=== PATIENT | female | born 1975 | race American Indian/Alaskan Native ===

== ENCOUNTER 2019-03-14 19:11 | Emergency (ER) | payer MEDICAID, OTHER ==
[2019-03-14 19:39] VITALS: BP 152/93
[2019-03-14] MEDS ORDERED: predniSONE 20 MG Tab PO ONE (19:57)
[2019-03-14] MEDS ORDERED: Albuterol 0.083% 2.5 MG/3 ML Neb Soln NEB ONE (19:57)
--- NOTE | 2019-03-14 20:22 | CRLCR ---
Indication: Continued pain after tripping 2 weeks ago. Technique: Three views of the right 3rd toe were obtained. Comparison: None Findings: A vertical fractures identified through the proximal phalanx of the right 3rd toe. This extends to the level of the PIP. No other fractures are identified. Impression: Fracture of the proximal phalanx of the right 3rd toe Dictated by Cande Platt MD @ Mar 14 2019 8:19PM Signed by Dr. Cande Platt @ Mar 14 2019 8:20PM
--- NOTE | 2019-03-14 20:22 | CRLCR ---
Indication: Cough with wheezing. Technique: PA and lateral views the chest were obtained. Comparison: None Findings: The heart is normal in size. The lungs are clear. No infiltrate, pleural effusion, or pneumothorax is identified. Impression: No acute cardiopulmonary process. Dictated by Cande Platt MD @ Mar 14 2019 8:20PM Signed by Dr. Cande Platt @ Mar 14 2019 8:21PM
--- NOTE | 2019-03-14 20:43 | EDM.PDOC ---
ED HPI GENERAL MEDICAL PROBLEM - General Chief Complaint: Respiratory Problem Stated Complaint: BROKEN TOE & COUGH Time Seen by Provider: 03/14/19 19:50 Source of Information: Reports: Patient History Limitations: Reports: No Limitations - History of Present Illness INITIAL COMMENTS - FREE TEXT/NARRATIVE: 44-year-old female presents to ER with toe injury and productive cough with wheezing. Patient has a history of asthma with symptoms despite using her albuterol inhaler which is likely old or empty not noting an improvement of her symptoms. Patient is on daily inhaled steroids. Patient continues to smoke. Patient had chills and sweats earlier in the week but has improved. Patient has a headache secondary cough. She injured her right third digit approximately 6 days ago when she was getting up out of bed. She stubbed the toe and has had continued pain despite taking Tylenol 650 mg and Ibuprofen 1/2 of 800mg tablets. Medications have not been controlling her pain adequately. She has been on unable to sleep at night secondary to the pain. She asks repeatedly for something stronger for the pain multiple times during visit. - Related Data Allergies Allergy/AdvReac Type Severity Reaction Status Date / Time aspirin Allergy Abdominal Verified 03/14/19 19:40 Pain ketorolac tromethamine Allergy Hives Verified 03/14/19 19:40 [From Toradol] propoxyphene napsylate Allergy Hives Verified 03/14/19 19:40 [From Darvocet-N] tramadol Allergy Hives Verified 03/14/19 19:40 Home Meds: Home Meds Albuterol Sulfate 0.63 mg IH Q4H PRN 05/06/15 [History] Cholecalciferol (Vitamin D3) [Vitamin D] 1,000 unit PO DAILY 05/06/15 [History] Acetaminophen [Tylenol Extra Strength] 1,500 mg PO QID PRN 08/18/15 [History] Ibuprofen [Wal-Profen] 800 mg PO TID PRN 08/18/15 [History] Acetaminophen/HYDROcodone [[place] 325-5 MG] 1 - 2 tab PO Q6H PRN 2 Days #10 tab 03/14/19 [Rx] Albuterol [Proventil HFA] 200 puff INH Q4H 5 Days #1 inhaler 03/14/19 [Rx] Azithromycin [Zithromax] 250 mg PO DAILY 5 Days #6 tab 03/14/19 [Rx] Diclofenac Sodium [Voltaren] 03/14/19 [History] Montelukast [Singulair] 03/14/19 [History] Rosuvastatin [Crestor] 03/14/19 [History] metFORMIN [Glucophage] 03/14/19 [History] predniSONE [Prednisone] 20 mg PO BID 5 Days #10 tablet 03/14/19 [Rx] Past Medical History Endocrine/Metabolic History: Reports: Diabetes, Type II - Past Surgical History Cardiovascular Surgical History: Reports: Vascular Surgery GI Surgical History: Reports: Appendectomy Female Surgical History: Reports: Section Other Musculoskeletal Surgeries/Procedures:: Carpal tunnel x2 Social & Family History - Tobacco Use Smoking Status *Q: Current Every Day Smoker Years of Tobacco use: 20 Packs/Tins Daily: 0.5 ED ROS GENERAL - Review of Systems Review Of Systems: ROS reveals no pertinent complaints other than HPI. ED EXAM, GENERAL - Physical Exam Exam: See Below Exam Limited By: No Limitations General Appearance: Alert, WD/WN Eye Exam: Bilateral Eye: EOMI, PERRL Ears: Normal External Exam, Hearing Grossly Normal Nose: Normal Inspection, Normal Mucosa, No Blood Throat/Mouth: Normal Inspection, Normal Lips, Normal Teeth, Normal Gums, Normal Oropharynx, Normal Voice, No Airway Compromise Head: Normocephalic Neck: Normal Inspection, Supple, Full Range of Motion Respiratory/Chest: No Respiratory Distress, Wheezing, Splinting. No: Normal Breath Sounds Cardiovascular: Normal Peripheral Pulses, Regular Rate, Rhythm, No Edema Extremities: Normal Inspection (Right foot third toe swelling noted. Pain to palpation. ), Normal Range of Motion, Non-Tender, Normal Capillary Refill, No Pedal Edema Neurological: Alert, Oriented, CN II-XII Intact, Normal Cognition, Normal Gait Psychiatric: Normal Affect, Normal Mood, Other (makes multiple trips to ER kitchen during visit. ) ED RESPIRATORY PROCEDURES - Additional/Other Procedure(s) Other (Free Text) Procedure(s): Ty tape third digit due to pain, swelling and fracture to second or fourth digit. Course - Vital Signs Last Recorded V/S: Last Vital Signs Temp 98.6 C H 03/14/19 19:38 Pulse 98 03/14/19 19:38 Resp 15 03/14/19 19:38 BP 152/93 H 03/14/19 19:38 Pulse Ox 98 06/15/19 19:38 - Orders/Labs/Meds Orders: Active Orders 24 hr Category Date Time Status RT Aerosol Therapy [RC] ASDIRECTED Care 03/14/19 19:57 Active Splinting [RC] ASDIRECTED Care 03/14/19 20:00 Active Meds: Medications Discontinued Medications Generic Name Dose Route Start Last Admin Trade Name Freq PRN Reason Stop Dose Admin Albuterol 2.5 mg 03/14/19 19:57 03/14/19 20:15 Proventil Neb Soln NEB 03/14/19 19:58 2.5 mg ONETIME ONE Administration Prednisone 60 mg 03/14/19 19:57 03/14/19 20:15 Prednisone PO 03/14/19 19:58 60 mg ONETIME ONE Administration - Radiology Interpretation Free Text/Narrative:: CXR PA/LAT: No acute cardiopulmonary findings noted. Right Third Toe XR: Soft Tissue swelling and Fracture of the right third proximal phalanx. Radiology report reviewed during ER visit and reviewed with patient before discharge. Departure - Departure Time of Disposition: 20:30 Disposition: Home, Self-Care 01 Condition: Good Clinical Impression: COPD (chronic obstructive pulmonary disease) with acute bronchitis, Wheezing on expiration, Toe fracture, right - Discharge Information Prescriptions: Acetaminophen/HYDROcodone [[place] 325-5 MG] 1 - 2 tab PO Q6H PRN 2 Days #10 tab PRN Reason: Pain (Severe 7-10) Albuterol [Proventil HFA] 200 puff INH Q4H 5 Days #1 inhaler Azithromycin [Zithromax] 250 mg PO DAILY 5 Days #6 tab predniSONE [Prednisone] 20 mg PO BID 5 Days #10 tablet Instructions: Chronic Obstructive Pulmonary Disease Exacerbation, [id number] , Toe Fracture, [id number], Bronchospasm, Adult, [id number] Referrals: PCP,None [Primary Care Provider] - 3 Days (Call PCP recheck in 3-5 days if not improving sooner if symptoms worsen or concerns. ) Forms: ED Department Discharge Additional Instructions: 1. Albuterol MDI with spacer every 4 hours whie awake x 5 days then as needed. INSTYMED 2. Prednisone 20mg BID or 40mf daily x 5 days. INSTYMED 3. If you Smoke STOP. 4. Continued Inhaled steroid as directed. 5. Azithromycin as directed x 6 days. INSTYMED 6. Mecca 1-2 tab every 6 hours for 24 hrs for moderate to severe pain. INSTYMED 7. Follow discharge instructions given. - My Orders Last 24 Hours: My Active Orders 03/14/19 19:57 RT Aerosol Therapy [RC] ASDIRECTED 03/14/19 20:00 Splinting [RC] ASDIRECTED - Assessment/Plan Last 24 Hours: My Active Orders 03/14/19 19:57 RT Aerosol Therapy [RC] ASDIRECTED 03/14/19 20:00 Splinting [RC] ASDIRECTED
== END 2019-03-14 21:25 | disposition home or self-care (01) ==
LOC: JP.ED 19:11
DX: S92.511A Displaced fracture of proximal phalanx of right lesser toe(s), initial encounter for closed fracture (principal); J44.0 Chronic obstructive pulmonary disease with (acute) lower respiratory infection; J20.9 Acute bronchitis, unspecified; E11.9 Type 2 diabetes mellitus without complications; F17.210 Nicotine dependence, cigarettes, uncomplicated; Z88.8 Allergy status to other drugs, medicaments and biological substances; Z79.84 Long term (current) use of oral hypoglycemic drugs; Z88.5 Allergy status to narcotic agent; Z79.899 Other long term (current) drug therapy
CPT/HCPCS: 71046; 73660; 94640; 99283; A9270

== ENCOUNTER 2019-03-15 16:25 | Emergency (ER) | payer MEDICAID ==
[2019-03-15] MEDS ORDERED: Albuterol/Ipratropium 3.0-0.5 MG/3 ML Neb Soln NEB ONE (16:47)
[2019-03-15] MEDS ORDERED: Albuterol 0.083% 2.5 MG/3 ML Neb Soln NEB ONE (16:47)
[2019-03-15] MEDS ORDERED: Dexamethasone 4 MG/ML SDV IM ONE (16:56)
--- NOTE | 2019-03-15 16:57 | EDM.PDOC ---
ED HPI GENERAL MEDICAL PROBLEM - General Chief Complaint: Respiratory Problem Stated Complaint: SOB, WHEEZY, BROKEN TOE Time Seen by Provider: 03/15/19 16:40 Source of Information: Reports: Patient History Limitations: Reports: No Limitations - History of Present Illness INITIAL COMMENTS - FREE TEXT/NARRATIVE: Alert 50-year-old female presents with worsening shortness of breath. Patient has asthma and was seen yesterday for asthma exacerbation, possible viral illness or typical pneumonia. Patient was given prednisone orally, started azithromycin, albuterol neb treatment improved her symptoms yesterday but reoccurrence today. Patient states she continues her Singulair. She is on her inhaled steroids. She is using her albuterol I don't think she is using as often as previously instructed. Patient states her cough is keeping her up at night she's had difficulty breathing. Patient denies any history of hospitalizations or intubation secondary to asthma. Chest Pain Score (Numeric/FACES): 10 - Related Data Allergies Allergy/AdvReac Type Severity Reaction Status Date / Time aspirin Allergy Abdominal Verified 03/15/19 16:47 Pain ketorolac tromethamine Allergy Hives Verified 03/15/19 16:47 [From Toradol] propoxyphene napsylate Allergy Hives Verified 03/15/19 16:47 [From Darvocet-N] tramadol Allergy Hives Verified 03/15/19 16:47 Home Meds: Home Meds Albuterol Sulfate 0.63 mg IH Q4H PRN 05/06/15 [History] Cholecalciferol (Vitamin D3) [Vitamin D] 1,000 unit PO DAILY 05/06/15 [History] Acetaminophen [Tylenol Extra Strength] 1,500 mg PO QID PRN 08/18/15 [History] Ibuprofen [Wal-Profen] 800 mg PO TID PRN 08/18/15 [History] Acetaminophen/HYDROcodone [[place] 325-5 MG] 1 - 2 tab PO Q6H PRN 2 Days #10 tab 03/14/19 [Rx] Albuterol [Proventil HFA] 200 puff INH Q4H 5 Days #1 inhaler 03/14/19 [Rx] Azithromycin [Zithromax] 250 mg PO DAILY 5 Days #6 tab 03/14/19 [Rx] Diclofenac Sodium [Voltaren] 03/14/19 [History] Montelukast [Singulair] 03/14/19 [History] Rosuvastatin [Crestor] 03/14/19 [History] metFORMIN [Glucophage] 03/14/19 [History] predniSONE [Prednisone] 20 mg PO BID 5 Days #10 tablet 03/14/19 [Rx] Past Medical History Respiratory History: Reports: Asthma Endocrine/Metabolic History: Reports: Diabetes, Type II - Past Surgical History Cardiovascular Surgical History: Reports: Vascular Surgery GI Surgical History: Reports: Appendectomy Female Surgical History: Reports: Section Other Musculoskeletal Surgeries/Procedures:: Carpal tunnel x2 Social & Family History - Tobacco Use Smoking Status *Q: Heavy Tobacco Smoker Years of Tobacco use: 30 Packs/Tins Daily: 1 - Recreational Drug Use Recreational Drug Use: No ED ROS GENERAL - Review of Systems Review Of Systems: ROS reveals no pertinent complaints other than HPI. ED EXAM, GENERAL - Physical Exam Exam: See Below Exam Limited By: No Limitations General Appearance: Alert, WD/WN, Moderate Distress (cough forceful with wheezing ) Eye Exam: Bilateral Eye: EOMI, PERRL Ears: Normal External Exam, Hearing Grossly Normal Nose: Normal Inspection, Normal Mucosa Throat/Mouth: Normal Inspection, Normal Oropharynx, Normal Voice, No Airway Compromise Head: Normocephalic Neck: Normal Inspection, Full Range of Motion Respiratory/Chest: Wheezing, Accessory Muscle Use, Retractions, Prolonged Expiration Cardiovascular: Normal Peripheral Pulses, Regular Rate, Rhythm GI/Abdominal: Normal Bowel Sounds (limited due to body habitus) Extremities: Normal Inspection, Normal Range of Motion, Non-Tender, No Pedal Edema, Normal Capillary Refill, Other (swelling and pain to palpation right long toe) Neurological: Alert Psychiatric: Normal Affect, Normal Mood Skin Exam: Warm, Dry, Intact, Normal Color, No Rash Course - Vital Signs Last Recorded V/S: Last Vital Signs Temp 37.2 C 03/15/19 16:45 Pulse 108 H 03/15/19 16:45 Resp 16 03/15/19 16:45 BP 155/102 H 03/15/19 16:45 Pulse Ox 96 03/15/19 16:45 - Orders/Labs/Meds Orders: Active Orders 24 hr Category Date Time Status RT Aerosol Therapy [RC] ASDIRECTED Care 03/15/19 16:47 Active RT Peak Flow Measurement [RC] ASDIRECTED Care 03/15/19 16:47 Active Meds: Medications Discontinued Medications Generic Name Dose Route Start Last Admin Trade Name [place] PRN Reason Stop Dose Admin Albuterol 2.5 mg 03/15/19 16:47 03/15/19 16:56 Proventil Neb Soln NEB 03/15/19 16:48 2.5 mg ONETIME ONE Administration Albuterol/Ipratropium 3 ml 03/15/19 16:47 03/15/19 16:56 Duoneb 3.0-0.5 Mg/3 Ml NEB 03/15/19 16:48 3 ml ONETIME ONE Administration Dexamethasone 10 mg 03/15/19 16:56 03/15/19 17:03 Dexamethasone IM 03/15/19 16:57 10 mg ONETIME ONE Administration - Re-Assessments/Exams Free Text/Narrative Re-Assessment/Exam: Albuterol neb and DuoNeb were given. Patient's pre-treatment peak flow was 260. Post peak flow 360. Patient wheezing and chest congestion is completely resolved. I reeducated patient regarding albuterol 2 puffs every 4hrx x 5 days then as directed. Continue the prednisone as directed, azithromycin and Singulair. Patient should continue her inhaled steroid. I encouraged patient to call to [facility] tomorrow morning for an appointment to recheck in 2- 3 days and establish care with an area. 03/15/19 17:32 Departure - Departure Time of Disposition: 17:34 Disposition: Home, Self-Care 01 Clinical Impression: Exacerbation of asthma, Wheezing on expiration, Toe fracture, right - Discharge Information Instructions: Steps to Quit Smoking, [id number], Asthma, Adult, Bronchospasm , Adult, Peak Flow Meter, Allergies, Adult Referrals: PCP,None [Primary Care Provider] - (Call PCP in am for recheck in 2-3 days to ensure improving. ) Forms: ED Department Discharge Additional Instructions: 1. Continue Prednisone, Azithromycin, Albuterol and inhaler steroids at home. 2. Albuterol 2 puffs every 4 hours x 5 days (use if your breathing wakes you up at night) 3. Continue Singular 10mg daily (at bedtime) for possible allergy component to symptoms. 4. Call [facility] Saturday for recheck in 2-3 days and establish primary care provider. 5. Return to ER if increased difficulty breathing or additional asthma concerns. - My Orders Last 24 Hours: My Active Orders 03/15/19 16:47 RT Aerosol Therapy [RC] ASDIRECTED RT Peak Flow Measurement [RC] ASDIRECTED - Assessment/Plan Last 24 Hours: My Active Orders 03/15/19 16:47 RT Aerosol Therapy [RC] ASDIRECTED RT Peak Flow Measurement [RC] ASDIRECTED
[2019-03-15 17:37] VITALS: BP 162/97
== END 2019-03-15 17:38 | disposition home or self-care (01) ==
LOC: JP.ED 16:25
DX: J45.901 Unspecified asthma with (acute) exacerbation (principal); S92.511A Displaced fracture of proximal phalanx of right lesser toe(s), initial encounter for closed fracture; E11.9 Type 2 diabetes mellitus without complications; F17.210 Nicotine dependence, cigarettes, uncomplicated; Z88.5 Allergy status to narcotic agent; Z88.6 Allergy status to analgesic agent; Z79.899 Other long term (current) drug therapy; Z90.49 Acquired absence of other specified parts of digestive tract; W22.8XXA Striking against or struck by other objects, initial encounter
CPT/HCPCS: 94640; 96372; 99284; J1100; J7620-GY

== ENCOUNTER 2019-03-31 23:57 | Emergency (ER) | payer MEDICAID ==
[2019-04-01 00:33] VITALS: BP 148/80; PULSE 110
--- NOTE | 2019-04-01 01:01 | EDM.PDOC ---
ED HPI GENERAL MEDICAL PROBLEM - General Chief Complaint: Respiratory Problem Stated Complaint: COUGH Time Seen by Provider: 04/01/19 00:40 Source of Information: Reports: Patient History Limitations: Reports: No Limitations - History of Present Illness INITIAL COMMENTS - FREE TEXT/NARRATIVE: 44-year-old female with a persistent cough for the past couple of weeks, much worse the last 2 days. Starting to develop some sputum production. She is continuing her asthma medications. She is also smoking fairly heavily. No fevers or chills. Onset: Gradual Duration: Week(s): (several weeks) Associated Symptoms: Reports: Cough, Headaches, Shortness of Breath. 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 (see below) Other Treatments AUTOMATION CONTROLS EXPERT: unkown - Related Data Allergies Allergy/AdvReac Type Severity Reaction Status Date / Time aspirin Allergy Abdominal Verified 03/15/19 16:47 Pain ketorolac tromethamine Allergy Hives Verified 03/15/19 16:47 [From Toradol] lactose Allergy Diarrhea Verified 04/01/19 00:20 Latex, Natural Rubber Allergy Hives Verified 04/01/19 00:20 morphine Allergy Rash Verified 04/01/19 00:20 propoxyphene napsylate Allergy Hives Verified 03/15/19 16:47 [From Darvocet-N] tramadol Allergy Hives Verified 03/15/19 16:47 Home Meds: Home Meds Albuterol Sulfate 0.63 mg IH Q4H PRN 05/06/15 [History] Cholecalciferol (Vitamin D3) [Vitamin D] 1,000 unit PO DAILY 05/06/15 [History] Acetaminophen [Tylenol Extra Strength] 1,500 mg PO QID PRN 08/18/15 [History] Ibuprofen [Wal-Profen] 800 mg PO TID PRN 08/18/15 [History] Albuterol [Proventil HFA] 200 puff INH Q4H 5 Days #1 inhaler 03/14/19 [Rx] Diclofenac Sodium [Voltaren] 50 mg PO BID 03/14/19 [History] Montelukast [Singulair] 10 mg PO DAILY 03/14/19 [History] Rosuvastatin [Crestor] 20 mg PO BEDTIME 03/14/19 [History] metFORMIN [Glucophage] 1,000 mg PO BID 03/14/19 [History] Past Medical History Cardiovascular History: Reports: None Respiratory History: Reports: Asthma Gastrointestinal History: Reports: None Genitourinary History: Reports: None Musculoskeletal History: Reports: None Endocrine/Metabolic History: Reports: Diabetes, Type II - Past Surgical History Cardiovascular Surgical History: Reports: Vascular Surgery GI Surgical History: Reports: Appendectomy Female Surgical History: Reports: Section Musculoskeletal Surgical History: Reports: Other (See Below) Other Musculoskeletal Surgeries/Procedures:: Carpal tunnel x2 Social & Family History - Tobacco Use Smoking Status *Q: Never Smoker Second Hand Smoke Exposure: No - Caffeine Use Caffeine Use: Reports: Energy Drinks, Soda - Recreational Drug Use Recreational Drug Use: No ED ROS GENERAL - Review of Systems Review Of Systems: See Below Constitutional: Denies: Fever, Chills HEENT: Denies: Throat Pain Respiratory: Reports: Shortness of Breath, Wheezing, Cough Cardiovascular: Denies: Chest Pain GI/Abdominal: Denies: Abdominal Pain, Nausea, Vomiting : Reports: Incontinence (Becomes incontinent from coughing) Skin: Reports: No Symptoms Neurological: Reports: Headache ED EXAM, GENERAL - Physical Exam Exam: See Below Exam Limited By: No Limitations General Appearance: Alert, No Apparent Distress Throat/Mouth: Normal Inspection Head: Atraumatic Respiratory/Chest: No Respiratory Distress, Wheezing (A few expiratory wheezes are heard while coughing, otherwise clear to the bases with normal respirations) Neurological: Alert, Oriented Psychiatric: Normal Affect, Normal Mood Skin Exam: Warm, Dry Course - Vital Signs Last Recorded V/S: Last Vital Signs Temp 98.1 F 04/01/19 00:32 Pulse 110 H 04/01/19 00:32 Resp 16 04/01/19 00:32 BP 148/80 H 04/01/19 00:32 Pulse Ox 96 04/01/19 00:32 - Re-Assessments/Exams Free Text/Narrative Re-Assessment/Exam: 04/01/19 01:00 Patient will be placed on 60 mg of prednisone daily for 5 consecutive days, and also given a five-day course of Zithromax. Strongly encouraged to decrease smoking. Recheck in 3-4 days if not improving satisfactorily. Departure - Departure Time of Disposition: 01:23 Disposition: Home, Self-Care 01 Condition: Good Clinical Impression: Bronchitis - Discharge Information Instructions: Acute Bronchitis, Adult, [id number] Referrals: PCP,None [Primary Care Provider] - Forms: ED Department Discharge Care Plan Goals: Continue with inhalers as directed, take 6 pills of prednisone in the morning for 5 consecutive days. Also take antibiotic as directed. Try to reduce smoking if possible. Recheck in 3-4 days if not improving satisfactorily.
== END 2019-04-01 01:28 | disposition home or self-care (01) ==
LOC: JP.ED 23:57
DX: J40 Bronchitis, not specified as acute or chronic (principal); E11.9 Type 2 diabetes mellitus without complications; Z79.84 Long term (current) use of oral hypoglycemic drugs; Z88.8 Allergy status to other drugs, medicaments and biological substances; Z88.6 Allergy status to analgesic agent; Z91.040 Latex allergy status; Z79.899 Other long term (current) drug therapy; Z88.5 Allergy status to narcotic agent
CPT/HCPCS: 99282

== ENCOUNTER 2019-05-03 16:37 | Emergency (ER) | payer MEDICAID ==
[2019-05-03 17:17] VITALS: BP 129/70; PULSE 104
--- NOTE | 2019-05-03 17:42 | EDM.PDOC ---
ED HPI GENERAL MEDICAL PROBLEM - General Chief Complaint: Lower Extremity Injury/Pain Stated Complaint: FELL HURT FOOT Time Seen by Provider: 05/03/19 17:34 Source of Information: Reports: Patient History Limitations: Reports: No Limitations - History of Present Illness INITIAL COMMENTS - FREE TEXT/NARRATIVE: fell today, causing pain to her left lateral foot; hurts to bear weight has abrasion to her right knee Right great toe hurts as well but she declines xray She took tylenol before arrival Denies injuring this foot in the past. Onset: Today Duration: Hour(s): (3) Location: Reports: Lower Extremity, Left Quality: Reports: Ache Severity: Moderate Improves with: Reports: None Worsens with: Reports: None Treatments RECRUITING ASSISTANT: Reports: Acetaminophen Left Feet Pain Score (Numeric/FACES): 9 - Related Data Allergies Allergy/AdvReac Type Severity Reaction Status Date / Time aspirin Allergy Abdominal Verified 05/03/19 17:17 Pain ketorolac tromethamine Allergy Hives Verified 05/03/19 17:17 [From Toradol] lactose Allergy Diarrhea Verified 05/03/19 17:17 Latex, Natural Rubber Allergy Hives Verified 05/03/19 17:17 morphine Allergy Rash Verified 05/03/19 17:17 propoxyphene napsylate Allergy Hives Verified 05/03/19 17:17 [From Darvocet-N] tramadol Allergy Hives Verified 05/03/19 17:17 Home Meds: Home Meds Albuterol Sulfate 0.63 mg IH Q4H PRN 05/06/15 [History] Cholecalciferol (Vitamin D3) [Vitamin D] 1,000 unit PO DAILY 05/06/15 [History] Acetaminophen [Tylenol Extra Strength] 1,500 mg PO QID PRN 08/18/15 [History] Ibuprofen [Wal-Profen] 800 mg PO TID PRN 08/18/15 [History] Albuterol [Proventil HFA] 200 puff INH Q4H 5 Days #1 inhaler 03/14/19 [Rx] Diclofenac Sodium [Voltaren] 50 mg PO BID 03/14/19 [History] Montelukast [Singulair] 10 mg PO DAILY 03/14/19 [History] Rosuvastatin [Crestor] 20 mg PO BEDTIME 03/14/19 [History] metFORMIN [Glucophage] 1,000 mg PO BID 03/14/19 [History] Gabapentin [Neurontin] 300 mg PO TID 05/03/19 [History] traZODone 200 mg PO BEDTIME 05/03/19 [History] Past Medical History HEENT History: Reports: Glaucoma, Impaired Vision Cardiovascular History: Reports: None Respiratory History: Reports: Asthma, COPD Gastrointestinal History: Reports: None Genitourinary History: Reports: None 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: Musculoskeletal History: Reports: Back Pain, Chronic Psychiatric History: Reports: ADHD, Anxiety, PTSD Endocrine/Metabolic History: Reports: Diabetes, Type II - Past Surgical History Cardiovascular Surgical History: Reports: Vascular Surgery GI Surgical History: Reports: Appendectomy Female Surgical History: Reports: Section Musculoskeletal Surgical History: Reports: Other (See Below) Other Musculoskeletal Surgeries/Procedures:: Carpal tunnel x2 Social & Family History - Tobacco Use Smoking Status *Q: Current Every Day Smoker Years of Tobacco use: 25 Packs/Tins Daily: 1.5 Used Tobacco, but Quit: No - Caffeine Use Caffeine Use: Reports: Coffee, Energy Drinks, Soda - Recreational Drug Use Recreational Drug Use: Yes Recreational Drug Type: Reports: Marijuana/Hashish Recreational Drug Use Frequency: Rarely Review of Systems - Review of Systems Review Of Systems: ROS reveals no pertinent complaints other than HPI. ED EXAM, GENERAL - Physical Exam Exam: See Below Exam Limited By: No Limitations General Appearance: Alert, WD/WN, No Apparent Distress Head: Atraumatic, Normocephalic Neck: Normal Inspection, Full Range of Motion Respiratory/Chest: Lungs Clear, Normal Breath Sounds Cardiovascular: Regular Rate, Rhythm Peripheral Pulses: 4+: Posterior Tibial (L), Posterior Tibial (R), Dorsalis Pedis (L), Dorsalis Pedis (R) Extremities: Redness (right knee; pain to the left lateral foot, hurts to move. +cms) Neurological: Alert, Oriented, CN II-XII Intact, Normal Cognition Psychiatric: Normal Affect, Normal Mood Skin Exam: Warm, Dry, Intact Course - Vital Signs Last Recorded V/S: Last Vital Signs Temp 95.3 F L 05/03/19 17:14 Pulse 104 H 05/03/19 17:14 Resp 14 05/03/19 17:14 BP 129/70 05/03/19 17:14 Pulse Ox 98 05/03/19 17:14 - Orders/Labs/Meds Orders: Active Orders 24 hr Category Date Time Status Foot 2V Lt [CR] Stat Exams 05/03/19 17:39 Taken Bacitracin [Bacitracin Oint] Med 05/03/19 21:00 Ordered 1 gm TOP TID Departure - Departure Time of Disposition: 18:06 Disposition: Home, Self-Care 01 Condition: Good Clinical Impression: Left foot pain - Discharge Information *PRESCRIPTION DRUG MONITORING PROGRAM REVIEWED*: Not Applicable *COPY OF PRESCRIPTION DRUG MONITORING REPORT IN PATIENT NELSON: Not Applicable Instructions: Foot Pain Referrals: PCP,None [Primary Care Provider] - Forms: ED Department Discharge Additional Instructions: Rest, ice Tylenol/ibuprofen for pain Elevate when able If you are still having pain after a week, follow up with your doctor for further evaluation. Call with questions. Return with concerns. - Problem List & Annotations (1) Left foot pain SNOMED Code(s): 80891997 Code(s): M79.672 - PAIN IN LEFT FOOT Status: Acute Priority: Low Current Visit: Yes - My Orders Last 24 Hours: My Active Orders 05/03/19 17:39 Foot 2V Lt [CR] Stat 05/03/19 21:00 Bacitracin [Bacitracin Oint] 1 gm TOP TID - Assessment/Plan Last 24 Hours: My Active Orders 05/03/19 17:39 Foot 2V Lt [CR] Stat 05/03/19 21:00 Bacitracin [Bacitracin Oint] 1 gm TOP TID
[2019-05-03] MEDS ORDERED: Bacitracin Oint 28.35 GM Tube TOP ONE (18:24)
--- NOTE | 2019-05-03 19:04 | CRLCR ---
Indication: Left foot pain. Technique: Left foot 2 views Comparison: None Findings: Bones: Alignment is normal. No fractures or bone lesions. Joint spaces: Joint spaces are well maintained. No degenerative changes. Soft tissues: Unremarkable. Impression: No findings to explain pain. Dictated by Holland Chinchilla MD @ May 03 2019 7:03PM Signed by Dr. Holland Chinchilla @ May 03 2019 7:04PM
[2019-05-03] MEDS ORDERED: Bacitracin Oint 28.35 GM Tube TOP SCH (21:00)
== END 2019-05-03 18:33 | disposition home or self-care (01) ==
LOC: JP.ED 16:37
DX: M79.672 Pain in left foot (principal); J44.9 Chronic obstructive pulmonary disease, unspecified; F90.9 Attention-deficit hyperactivity disorder, unspecified type; E11.9 Type 2 diabetes mellitus without complications; F17.210 Nicotine dependence, cigarettes, uncomplicated; Z88.6 Allergy status to analgesic agent; Z91.011 Allergy to milk products; Z91.040 Latex allergy status; Z88.5 Allergy status to narcotic agent; Z88.8 Allergy status to other drugs, medicaments and biological substances; Z79.899 Other long term (current) drug therapy; Z79.84 Long term (current) use of oral hypoglycemic drugs
CPT/HCPCS: 73620; 99283; A9270

== ENCOUNTER 2019-05-25 13:51 | Emergency (ER) | payer MEDICAID ==
[2019-05-25 14:48] VITALS: BP 119/77; PULSE 90
== END 2019-05-25 15:17 | disposition left against medical advice (07) ==
LOC: JP.ED 13:51
DX: Z53.21 Procedure and treatment not carried out due to patient leaving prior to being seen by health care provider (principal)

== ENCOUNTER 2022-09-01 16:37 | Emergency (ER) | payer MEDICAID ==
[2022-09-01] MEDS ORDERED: Lidocaine 1% 5 ML VIAL INJECT ONE (17:42)
[2022-09-01 18:50] VITALS: BP 97/52; PULSE 108
== END 2022-09-01 18:35 | disposition home or self-care (01) ==
LOC: JP.ED 16:37
DX: L08.9 Local infection of the skin and subcutaneous tissue, unspecified (principal); J44.9 Chronic obstructive pulmonary disease, unspecified; E11.9 Type 2 diabetes mellitus without complications; Z88.5 Allergy status to narcotic agent; Z79.899 Other long term (current) drug therapy; Z91.040 Latex allergy status; Z88.8 Allergy status to other drugs, medicaments and biological substances; Z91.011 Allergy to milk products
CPT/HCPCS: 81025; 99283

== ENCOUNTER 2022-10-20 12:15 | Emergency (ER) | payer MEDICAID ==
[2022-10-20 13:10] VITALS: BP 116/79; PULSE 110
[2022-10-20 14:51] LABS: CORONAVIRUS COVID-19 NAA NEGATIVE (NEGATIVE)
== END 2022-10-20 15:09 | disposition home or self-care (01) ==
LOC: JP.ED 12:15
DX: M25.562 Pain in left knee (principal); J06.9 Acute upper respiratory infection, unspecified; J44.9 Chronic obstructive pulmonary disease, unspecified; E11.9 Type 2 diabetes mellitus without complications; Z72.0 Tobacco use; Z88.8 Allergy status to other drugs, medicaments and biological substances; Z88.5 Allergy status to narcotic agent; Z91.011 Allergy to milk products; Z91.040 Latex allergy status; Z79.899 Other long term (current) drug therapy; Z20.822 Contact with and (suspected) exposure to COVID-19
CPT/HCPCS: 0241U; 73562-26-LT; 73562-LT; 99283

== ENCOUNTER 2022-11-06 07:31 | Emergency (ER) | payer MEDICAID ==
[2022-11-06 07:44] VITALS: BP 114/72; PULSE 117
[2022-11-06 09:09] LABS: CORONAVIRUS COVID-19 NAA NEGATIVE (NEGATIVE)
== END 2022-11-06 09:44 | disposition home or self-care (01) ==
LOC: JP.ED 07:31
DX: J40 Bronchitis, not specified as acute or chronic (principal); E11.9 Type 2 diabetes mellitus without complications; F17.210 Nicotine dependence, cigarettes, uncomplicated; Z91.040 Latex allergy status; Z88.5 Allergy status to narcotic agent; Z88.8 Allergy status to other drugs, medicaments and biological substances; Z79.899 Other long term (current) drug therapy; Z20.822 Contact with and (suspected) exposure to COVID-19
CPT/HCPCS: 0241U; 71046; 99283; 99282